=== PATIENT | male | born 1970 | race Two or more races ===

== ENCOUNTER 2019-09-22 05:56 | Inpatient (IN) | payer MEDICAID, OTHER ==
[~2019-09-22] VITALS: Ht 152.4 cm; Wt 59.0 kg
[2019-09-22] MEDS ORDERED: VANCOMYCIN 1 GM VIAL ONE (06:24)
[2019-09-22] MEDS ORDERED: CEFTRIAXONE 1GM BAG (ER ONLY) 50 ML IV ONE (06:24)
[2019-09-22] MEDS ORDERED: MORPHINE SULFATE INJ 4 MG/ML DISP.SYRIN ONE (06:25)
--- NOTE | 2019-09-22 06:26 | NUR ---
BIBRA 89 FOR C/O L BUTT REDNESS, PAIN AND SWELLING S/P HE SITTING ON A PEICE OF GLASS 10 DAYS AGO TO ER BED 7 LINE DRAWN, BLOOD SENT TO LAB
[2019-09-22] MEDS ORDERED: VANCOMYCIN 1 GM in IV D5W 250 ML IV ONE (06:30)
[2019-09-22] MEDS ORDERED: CEFTRIAXONE 1GM BAG (ER ONLY) 1 GM/50 ML PIGGYBACK IV ONE (06:30)
[2019-09-22] MEDS ORDERED: MORPHINE SULFATE INJ 2 MG/ML DISP.SYRIN IV ONE (06:30)
[2019-09-22 06:37] LABS: BASOPHILS # (AUTO) 0.1 /CMM (0.0-0.2); BASOPHILS % (AUTO) 0.3 % (0.0-2.0); EOSINOPHILS % (AUTO) 0.4 % (0.0-6.0); HEMATOCRIT 36 % (39-51); HEMOGLOBIN 12.1 g/dL (13.5-17.5); LYMPHOCYTES # (AUTO) 1.4 /CMM (0.8-4.8); LYMPHOCYTES % (AUTO) 6.4 % (20.0-44.0); MEAN CORPUSCULAR HGB CONC 34 g/dl (31.0-36.0); MEAN CORPUSCULAR VOLUME 88 fL (80-96); MONOCYTES # (AUTO) 1.5 /CMM (0.1-1.30); MONOCYTES % (AUTO) 7.1 % (2.0-12.0); NEUTROPHILS # (AUTO) 18.7 /CMM (1.8-8.9); NEUTROPHILS % (AUTO) 85.8 % (43.0-81.0); PLATELET COUNT (AUTO) 391 /CMM (150-450); RED BLOOD CELL COUNT(AUTO) 4.09 MIL/uL (4.5-6.0); WHITE BLOOD COUNT (AUTO) 21.8 K/uL (4.3-11.0)
[2019-09-22 06:47] LABS: CALCIUM, SERUM 8.6 mg/dL (8.5-10.1); CREATININE 0.8 mg/dL (0.6-1.3); POTASSIUM 3.5 mmol/L (3.5-5.1)
[2019-09-22 06:52] LABS: ALBUMIN 2.4 g/dL (3.4-5.0); BILIRUBIN,DIRECT 0.3 mg/dL (0.0-0.2); BILIRUBIN,TOTAL 0.8 mg/dL (0.2-1.0); TOTAL PROTEIN, SERUM 7.2 g/dL (6.4-8.2)
--- NOTE | 2019-09-22 07:06 | NUR ---
CALLED RADIOLOGY FOR CT
[2019-09-22] MEDS ORDERED: IV NS 0.9% 250 ML IV ONE (07:20)
[2019-09-22] MEDS ORDERED: CT SWABBABLE VALVE TRANS SET 1 EA INFUS.SET MC ONE (07:20)
[2019-09-22] MEDS ORDERED: IOHEXOL-300 100 ML VIAL IV ONE (07:20)
--- NOTE | 2019-09-22 08:34 | NUR ---
REPORT GIVEN TO IZZY PARKER MARJORIE.
--- NOTE | 2019-09-22 10:03 | NUR ---
ER MD SPOKE TO DR. CHAMORRO. PATIENT A/OX4, BREATHING EVEN AND UNLABORED, NOS OB NOTED. NEEDS ATTENDED. KEPT COMFORTABLE. LEFT BUTTOCK SHOWS REDNESS WITH DRAINAGE. PATIENT TRANSFERRED TO ROOM 321-1 VIA [facility].
[2019-09-22] MEDS ORDERED: IV NS 0.9% 1,000 ML IV PRN (10:21)
[2019-09-22] MEDS ORDERED: HYDROCODONE/APAP 5/325MG 1 EACH TABLET PO PRN (10:30)
[2019-09-22] MEDS ORDERED: MAGNESIUM HYDROXIDE 30 ML UDC PO PRN (10:30)
[2019-09-22] MEDS ORDERED: MAG HYDROX/AL HYDROX/SIMETH 30 ML UDC PO PRN (10:30)
[2019-09-22] MEDS ORDERED: HYDROCODONE/APAP 10/325MG 1 EA TABLET PO PRN (10:30)
[2019-09-22] MEDS ORDERED: Z GUARD REMEDY 2 OZ OINT TP PRN (10:30)
[2019-09-22] MEDS ORDERED: ONDANSETRON HCL/PF 4 MG/2 ML VIAL IVP PRN (10:30)
[2019-09-22] MEDS ORDERED: ZOLPIDEM TARTRATE 5 MG TABLET PO PRN (10:30)
[2019-09-22] MEDS ORDERED: ACETAMINOPHEN 325 MG TABLET PO PRN (10:30)
[2019-09-22] MEDS ORDERED: MORPHINE SULFATE INJ 2 MG/ML DISP.SYRIN IV PRN (10:30)
--- NOTE | 2019-09-22 10:30 | NUR ---
MS RN NOTE PATIENT IN BED RESTING COMFORTABLY. PATIENT IN NO ACUTE DISTRESS. NO SOB NOTED. PATIENT BREATHING IS EVEN AND UNLABORED. PATIENT BP 97/59, TEMPERATURE 99.0, HR 84, BREATHING ON ROOM AIR SATURATING AT 98% SPO2. PER DR. CHAMORRO PATIENT TO HAVE COVID SWAB RESULTS BEFORE I&D IN OR. PER DR. TOMMY WATT TO TRANSFER TO [facility] 2 COVID UNIT FOR RULE OUT. REPORT GIVEN TO WES PARKER. PATIENT TRANSFERRED [facility] AND ENDORSED ADMISSION TO WES PARKER.
[2019-09-22] MEDS ORDERED: FEE PK DOSING 1 MIN EA MC ONE (10:56)
[2019-09-22 11:30] VITALS: BP 93/51
[2019-09-22 12:00] VITALS: BP 93/51
[2019-09-22] MEDS: ZOSYN IVPB 3.375 G in IV D5W 50ml IV SCH ×3 (12:00→18:25)
[2019-09-22] MEDS ORDERED: PIPERACILLIN /TAZOBACTAM 4.5 G in IV D5W 50 ML IV SCH (12:00)
--- NOTE | 2019-09-22 12:05 | NUR ---
MS/RN - Admission Received patient from [facility] via bed, A/O x 4, denies pain, stable on room air, no c/o SOB. Patient was admitted for left buttock cellulitis/abscess under the care of Dr. Lincoln Flowers. Plan for I&D in [place] with Dr. Moreau once Covid-19 is negative. Skin assessment done, noted with left buttock open wound, swelling and redness, picture taken. All belongings accounted. Patient oriented to room and use of call light. Admission orders noted and carried out. Placed on contact and droplet for r/o Covid-19. Will continue with current medical management.
--- NOTE | 2019-09-22 12:37 | NUR ---
MS/RN - Notes Patient removed peripheral IV line on the RAC stated "I don't want any IV fluids and IV antibiotics." Explained to the patient the importance but refused. Will notify Dr. Stark.
--- NOTE | 2019-09-22 13:10 | NUR ---
MS/RN - Notes Covid-19 specimen sent to the lab.
[2019-09-22 14:57] LABS: C-REACTIVE PROTEIN 33.7 mg/dL (0.0-0.9)
[2019-09-22] MEDS: VANCOMYCIN 1 GM in IV D5W 250 ML IV SCH ×2 (15:00→23:44)
--- NOTE | 2019-09-22 15:30 | NUR ---
MS/RN - Surgery Eval Seen and examined by Dr. Moreau for left buttock abscess. Md made aware that patient is non-compliant with IVF and IV antibiotics. I&D cancelled but will do US guided or CT guided drainage of the left buttock abscess.
[2019-09-22 16:00] VITALS: BP 81/45
--- NOTE | 2019-09-22 18:36 | NUR ---
MS/RN - End of shift notes No significant change in condition seen, left buttock pain managed by Gila 5/325 mg 1 tab, afebrile, no SOB. Patient now agreed to IVF and IV antibiotics. Patient for US guided drainage of left buttock abscess in AM, consent signed. All needs attended. Will continue with current plan of care.
--- NOTE | 2019-09-22 19:45 | NUR ---
MS RN OPENING NOTES PATIENT SLEEPING IN BED, EASY TO AWAKEN. A/OX3. ABLE TO VERBALIZE NEEDS. STABLE ON RA. NO S/S OF ACUTE RESPIRATORY AND NO C/O PAIN AT THIS TIME. IV PRESENT ON RIGHT AC, SIZE 18, INTACT & PATENT WITH NS RUNNING AT 75 ML/HR. DROPLET/CONTACT PRECAUTIONS IN PLACE FOR R/O COVID 19. SAFETY MEASURES IN PLACE AND PATIENT'S NEEDS MET. BED LOCKED, ALARM ON, SIDE RAILS X2, CALL LIGHT WITHIN REACH. WILL CONTINUE TO MONITOR.
[2019-09-22 20:00] VITALS: BP 129/61
--- NOTE | 2019-09-22 20:40 | NUR ---
MS RN NOTES PATIENT C/O OF 10/10 PAIN ON LEFT BUTTOCK. ADMINISTERED PRN NORCO 10/325 MG PO. VITAL SIGNS - BP: 129/61 HR: 97. CALL LIGHT WITHIN REACH WILL CONTINUE TO MONITOR.
[2019-09-22 20:47] VITALS: BP 129/61
--- NOTE | 2019-09-22 21:57 | NUR ---
MS RN NOTES PATIENT C/O OF INSOMNIA AND REQUESTING SLEEPING PILLS. ADMINISTERED PRN HS AMBIEN 5MG PO. CALL LIGHT WITHIN REACH. WILL CONTINUE TO MONITOR.
[2019-09-23] MEDS: ZOSYN IVPB 3.375 G in IV D5W 50ml IV SCH ×2 (00:46→05:40)
[2019-09-23 01:00] VITALS: BP 97/56
--- NOTE | 2019-09-23 01:00 | NUR ---
LIBRARY SUPERVISOR NOTES PATIENT PLACED ON TELE. MONITOR READING NSR, HEART RATE 85. WILL CONTINUE TO MONITOR
--- NOTE | 2019-09-23 01:13 | NUR ---
CHOIR MEMBER NOTES PATIENT'S TEMP 100.2. ADMINISTERED PRN TYLENOL 650 MG PO AND APPLIED COOLING MEASURES. WILL CONTINUE TO MONITOR TEMP.
--- NOTE | 2019-09-23 03:38 | NUR ---
DEBUBBLIZER NOTES PATIENT REFUSING TELE MONITOR AT THIS TIME. EXPLAINED TO PATIENT IMPORTANCE OF MONITOR, HOWEVER STILL REFUSED.
[2019-09-23 04:00] VITALS: BP 97/48
[2019-09-23 04:53] VITALS: BP 97/48
[2019-09-23] MEDS: VANCOMYCIN 1 GM in IV D5W 250 ML IV SCH (06:46)
[2019-09-23] MEDS ORDERED: PANTOPRAZOLE 40 MG TABLET.DR PO SCH (07:30)
--- NOTE | 2019-09-23 07:54 | NUR ---
Tele/RN - Assessment Patient is A/O x 3, afebrile, appears comfortable, stable on room air, SpO2 98%. IVF NS at 75 ml/hr infusing well on the RFA with no signs of infiltration. Patient scheduled today for US guided drainage of left buttock abscess, consent signed. Lab results pending. Contact and droplet precautions maintained for r/o Covid-19. Will continue with current medical management.
[2019-09-23 08:00] VITALS: BP 85/50
[2019-09-23 08:01] LABS: BASOPHILS # (AUTO) 0.1 /CMM (0.0-0.2); BASOPHILS % (AUTO) 0.6 % (0.0-2.0); EOSINOPHILS % (AUTO) 1.3 % (0.0-6.0); HEMATOCRIT 34 % (39-51); HEMOGLOBIN 11.4 g/dL (13.5-17.5); LYMPHOCYTES # (AUTO) 1.8 /CMM (0.8-4.8); LYMPHOCYTES % (AUTO) 10.3 % (20.0-44.0); MEAN CORPUSCULAR HGB CONC 34 g/dl (31.0-36.0); MEAN CORPUSCULAR VOLUME 89 fL (80-96); MONOCYTES # (AUTO) 1.2 /CMM (0.1-1.30); MONOCYTES % (AUTO) 6.8 % (2.0-12.0); PLATELET COUNT (AUTO) 403 /CMM (150-450); RED BLOOD CELL COUNT(AUTO) 3.81 MIL/uL (4.5-6.0); WHITE BLOOD COUNT (AUTO) 17.3 K/uL (4.3-11.0)
--- NOTE | 2019-09-23 08:15 | NUR ---
Tele/RN - Notes Patient noncompliant with medications (IVF and IV antibiotics) and tele monitoring. Explained the importance but still refused. Patient upset and verbalized that he wants to leave AMA. Patient stated I don't want to stay in the hospital.
[2019-09-23 08:31] LABS: D-DIMER 5.64 mg/L(FEU (0.17-0.50)
[2019-09-23 08:35] LABS: THYROID STIMULATING HORMONE 3.018 uIU/mL (0.358-3.74)
[2019-09-23 08:42] LABS: CALCIUM, SERUM 7.9 mg/dL (8.5-10.1); CREATININE 0.7 mg/dL (0.6-1.3); MAGNESIUM 2.3 mg/dL (1.8-2.4); PHOSPHORUS 4.2 mg/dL (2.5-4.9); POTASSIUM 3.3 mmol/L (3.5-5.1)
--- NOTE | 2019-09-23 09:09 | NUR ---
Tele/RN - AMA Patient is alert and oriented x 3, remain afebrile, denies pain, not in any form of distress, ambulatory with steady gait, denies SI/HI at this time. Peripheral IV the RFA removed, catheter intact, no signs or symptoms of redness or swelling. Patient refused skin assessment/photos. Patient refused to take his personal belongings and to sign AMA and homeless patient waiver form. Patient was advised to seek immediate medical attention for worsening symptoms, chest pain, shortness of breath, palpitations, abdominal pain or distention, intractable nausea and vomiting, diarrhea, hematochezia, melena, weakness, loss of consciousness, neurological deficit, or any other emergent concerns. rn er, Nursing Community Health Promoter (Andria) and Hospitalist (Dr. Lincoln Flowers) made aware. Patient left the unit AMA at 08:30. Addendum: 09/23/19 at 0930 by WES GRAVES RN Patient is aware of the risk and consequences involved in leaving the hospital at this time and the benefits of continued treatment and hospitalization. Patient also stated that he is releasing the hospital and its employees from all responsibility for any injury or ill effects which result from this action.
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
== END 2019-09-23 09:57 | disposition left against medical advice (07) | DRG 720 ==
LOC: ER 05:59 → EDBD 05:59 → MED 08:44 → MEDSG2 10:59 → TELE2 09-23 00:47
DX: A41.9 Sepsis, unspecified organism (principal); E46 Unspecified protein-calorie malnutrition; L02.31 Cutaneous abscess of buttock; E87.1 Hypo-osmolality and hyponatremia; M60.9 Myositis, unspecified; L03.317 Cellulitis of buttock; F10.10 Alcohol abuse, uncomplicated; Y90.9 Presence of alcohol in blood, level not specified; F17.200 Nicotine dependence, unspecified, uncomplicated; D64.9 Anemia, unspecified; K57.90 Diverticulosis of intestine, part unspecified, without perforation or abscess without bleeding; Z59.0 Homelessness
CPT/HCPCS: 36415; 71045-TC; 72193-TC; 80048-TC; 80061-TC; 80076-TC; 80202-TC; 82550-TC; 82728-TC; 83605-TC; 83615-TC; 83735-TC; 84100-TC; 84443-TC; 85025-TC; 85378-TC; 85385-TC; 85610-TC; 86140-TC; 87040-TC; 87081-TC; G0378; J0696; J2270; J2543; J3370; J7030; J7050; J7060; Q9967

== ENCOUNTER 2021-08-08 11:57 | Emergency (ER) | payer MEDICAID ==
[~2021-08-08] VITALS: Ht 165.1 cm; Wt 66.2 kg
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
--- NOTE | 2021-08-08 12:19 | NUR ---
crissy dyson. kyler called for wanding. belongings to safe locker.
--- NOTE | 2021-08-08 12:44 | NUR ---
UNABLE TO PROVIDE URINE SAMPLE AT THIS TIME
[2021-08-08 13:01] LABS: BASOPHILS # (AUTO) 0.1 K/uL (0.0-0.2); BASOPHILS % (AUTO) 0.7 % (0.0-2.0); EOSINOPHILS % (AUTO) 2.8 % (0.0-6.0); HEMATOCRIT 39 % (39-51); LYMPHOCYTES # (AUTO) 2.8 K/uL (0.8-4.8); LYMPHOCYTES % (AUTO) 35.6 % (20.0-44.0); MEAN CORPUSCULAR HGB CONC 33 g/dl (31.0-36.0); MEAN CORPUSCULAR VOLUME 90 fL (80-96); MONOCYTES # (AUTO) 0.6 K/uL (0.1-1.30); MONOCYTES % (AUTO) 7.2 % (2.0-12.0); NEUTROPHILS # (AUTO) 4.2 K/uL (1.8-8.9); NEUTROPHILS % (AUTO) 53.7 % (43.0-81.0); PLATELET COUNT (AUTO) 272 K/uL (150-450); RED BLOOD CELL COUNT(AUTO) 4.39 MIL/uL (4.5-6.0); WHITE BLOOD COUNT (AUTO) 7.8 K/uL (4.3-11.0)
[2021-08-08 13:16] LABS: CALCIUM, SERUM 8.4 mg/dL (8.5-10.1); CARBON DIOXIDE 25 mmol/L (21-32); CHLORIDE 108 mmol/L (98-107); CREATININE 0.6 mg/dL (0.6-1.3); GLUCOSE 136 mg/dL (74-106); POTASSIUM 3.8 mmol/L (3.5-5.1); SODIUM SERUM 143 mmol/L (136-145); UREA NITROGEN, BLOOD 16 mg/dL (7-18)
[2021-08-08 13:22] LABS: ALANINE AMINOTRANSFERASE 31 U/L (12-78); ALBUMIN 3.5 g/dL (3.4-5.0); ALCOHOL, BLOOD 56 mg/dL (0-0); ALKALINE PHOSPHATASE 94 U/L (46-116); ASPARTATE AMINOTRANSFERASE 27 U/L (15-37); BILIRUBIN,DIRECT 0.1 mg/dL (0.0-0.2); BILIRUBIN,TOTAL 0.2 mg/dL (0.2-1.0); TOTAL PROTEIN, SERUM 6.6 g/dL (6.4-8.2)
--- NOTE | 2021-08-08 13:31 | NUR ---
COVID SWAB DONE AND SENT TO LAB
[2021-08-08 13:32] LABS: ACETAMINOPHEN < 2 ug/ml (10-30)
--- NOTE | 2021-08-08 14:20 | NUR ---
URINE COLLECTED AND SENT TO LAB
--- NOTE | 2021-08-08 14:53 | NUR ---
COVID PCR COLLECTED AND SENT
[2021-08-08 15:12] LABS: BILIRUBIN,URINE NEGATIVE (NEGATIVE); COLOR,URINE YELLOW (YELLOW); LEUKOCYTE ESTERASE ,URINE NEGATIVE (NEGATIVE); NITRITE, URINE NEGATIVE (NEGATIVE); PROTEIN,URINE NEGATIVE (NEGATIVE); UGLUCOSE NEGATIVE (NEGATIVE); UROBILINOGEN,URINE 0.2 EU/dL (0.2)
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
--- NOTE | 2021-08-08 16:02 | NUR ---
Called Hetal to come evaluate pt.
--- NOTE | 2021-08-08 20:58 | NUR ---
CALLED REAL ESTATE MANAGER GOGO, STATES WILL SEE PT SOON
--- NOTE | 2021-08-08 23:15 | NUR ---
PT EVALUATED BY [facility] AUTOMATION DESIGN ENGINEER. PT NO LONGER ON 5150 HOLD.
--- NOTE | 2021-08-08 23:40 | NUR ---
Patient discharged to home in stable condition. Written and verbal after care instructions given. Patient verbalizes understanding of instruction.
[2021-08-08 23:41] VITALS: BP 114/68
== END 2021-08-08 23:42 | disposition home or self-care (01) ==
LOC: EDBD 11:57 → ER 12:10
DX: R45.850 Homicidal ideations (principal); F10.129 Alcohol abuse with intoxication, unspecified; Y90.2 Blood alcohol level of 40-59 mg/100 ml
CPT/HCPCS: 36415; 80048; 80076; 80143; 80307; 80320; 81003; 85025; 87426; 99285; C9803; U0003; G0480